=== PATIENT | male | born 1985 | race African-American/Black ===

== ENCOUNTER → 2016-10-24 | Outpatient (CLI) | payer BC ==
--- NOTE | 2016-10-31 16:16 | SLEEP ---
DATE OF STUDY: 10/24/2016 HOME SLEEP STUDY DATE OF SERVICE: 10/24/2016 ATTENDING PHYSICIAN: Dr. Mat Sheth. The patient is 40 years old who weighs 265 pounds with a BMI of 35. The patient has moderate to severe subjective hypersomnia with an [place] score of 16. Home sleep study was performed by [facility]. The total recording time was 436 minutes. During the night study, the patient had 2 central apneas, 234 obstructive apneas, 408 mixed apneas and 137 hypopneas. The patient's apnea hypopnea index was 107 per hour. Supine index 26 per hour. Review of nocturnal oximetry study revealed that 247 minutes were spent in oxygen saturation of less than 90%. The patient's lowest level was 68% with an average saturation of 88%. Mean heart rate was 75 beats per minute. IMPRESSION: 1. Severe sleep apnea-hypopnea syndrome with an AHI of 107 per hour. 2. Severe nocturnal hypoxia secondary to obstructive sleep apnea. RECOMMENDATIONS: 1. The patient would benefit from an in-lab CPAP titration study. 2. Once optimal CPAP pressure is achieved, then follow up in 4-6 weeks to assess compliance with CPAP and to document clinical improvement. 3. Weight loss is strongly advised. 4. Avoid [employer] depressants. 5. Caution regarding driving until symptoms of sleep apnea resolve with the use of CPAP. LIDA MCCURDY MD DR: KELSEY/krystyna JOB#: [id number] / [id number] MAT Jeffers MD
== END | disposition home or self-care (01) ==
LOC: RT 07:21
PROVIDERS: ATTEND Family Medicine
DX: G47.33 Obstructive sleep apnea (adult) (pediatric) (principal)
CPT/HCPCS: G0399